=== PATIENT | male | born 1975 | race Caucasian/White ===

== ENCOUNTER 2019-08-21 18:36 | Emergency (ER) | payer MEDICAID, OTHER ==
[~2019-08-21] VITALS: Ht 167.6 cm; Wt 104.3 kg
[~2019-08-21 18:36] MED LIST: CITA-30; LISI-646; [UNRECOGNIZED DRUG - CODE]
[2019-08-21 22:05] VITALS: BP 126/88
== END 2019-08-21 23:08 | disposition home or self-care (01) ==
LOC: ER 18:36
DX: S93.401A Sprain of unspecified ligament of right ankle, initial encounter (principal); I10 Essential (primary) hypertension; W20.8XXA Other cause of strike by thrown, projected or falling object, initial encounter; Y93.01 Activity, walking, marching and hiking; Y92.89 Other specified places as the place of occurrence of the external cause; Y99.8 Other external cause status
CPT/HCPCS: 73610